=== PATIENT | male | born 1950 | race Caucasian/White ===

== ENCOUNTER 2022-08-02 21:38 | Emergency (ER) | payer MEDICARE, SELFPAY ==
[2022-08-02 21:56] VITALS: BP 134/72; PULSE 55; RESP 20; TEMP 36.8; O2SAT 94; BMI 24.9
--- NOTE | 2022-08-02 22:05 | DI.RAD.S_ITS ---
PROCEDURE: XR CHEST 1V INDICATIONS: chest pain TECHNIQUE: One view of the chest was acquired. COMPARISON: None. FINDINGS: Surgical changes and devices: None. Lungs and pleura: There is mild linear atelectasis or scarring in the left lung base. No acute consolidation. No pleural effusions or pneumothorax. Mediastinum: Mediastinal contours appear normal. Heart size is normal. Bones and chest wall: No suspicious bony lesions. Overlying soft tissues appear unremarkable. IMPRESSION: 1. No acute cardiopulmonary disease. Dictated by: Simone Denis M.D. on 08/02/2022 at 22:58 Approved by: Simone Denis M.D. on 08/02/2022 at 22:58
[2022-08-02 22:33] LABS: Add Manual Diff / Slide Review NO; Basophils Absolute Auto 0 /uL (0-100); Basophils Percent Auto 0.4 % (0-2); Eosinophils Absolute Auto 300 /uL (0-450); Eosinophils Percent Auto 4.1 % (2-4); Hematocrit 41.1 % (41-53); Hemoglobin 13.8 g/dL (13.5-17.5); Lymphocytes Absolute Auto 2200 /uL (1100-4500); Lymphocytes Percent Auto 35.6 % (25-40); Mean Corpuscular HGB Conc 33.6 % (30-36); Mean Corpuscular Hemoglobin 30.5 PG (26-34); Mean Corpuscular Volume 90.9 fL (80-100); Monocytes Absolute Auto 600 /uL (0-900); Monocytes Percent Auto 9.1 % (3-14); Neutrophils Absolute Auto 3100 /uL (1500-7000); Neutrophils Percent Auto 50.8 % (50-75); Platelet Count 219 X10^3/uL (150-400); Red Blood Cell Count 4.52 X10^6/uL (4.5-5.9); Red Cell Distribution Width 13.3 % (11.6-14.8); White Blood Cell Count 6.2 X10^3/uL (4.5-11.0)
[2022-08-02 22:40] LABS: INR 1.2 (0.9-1.3); Prothrombin Time 13.6 SECONDS (10.1-12.7)
[2022-08-02 22:43] LABS: PTT Partial Thromboplastin Tim 31 SECONDS (26-36)
[2022-08-02 22:46] LABS: Alanine Aminotransferase 38 IU/L (<50); Albumin 4.5 g/dL (3.5-5.0); Albumin Globulin Ratio 1.7 (1.0-2.8); Alkaline Phosphatase 95 U/L (38-126); Aspartate Aminotransferase 37 IU/L (17-59); BUN Creatinine Ratio 19.2 (6-22); Bilirubin Total 0.5 mg/dL (0.2-1.3); Blood Urea Nitrogen 20 mg/dL (9-20); Carbon Dioxide 28 mmol/L (22-32); Chloride 105 mmol/L (98-107); Creatine Kinase 198 U/L (55-170); Estimated Glomerular Filt Rate > 60 mL/min (>60); Globulin 2.6 g/dL (1.7-4.1); Glucose 131 mg/dL (80-110); HEMOLYSIS < 15 (0-50); Lipase 115 U/L (23-300); Magnesium 2.2 mg/dL (1.6-2.3); Potassium 3.7 mmol/L (3.4-5.1); Sodium 139 mmol/L (137-145); Total Protein 7.1 g/dL (6.3-8.2)
[2022-08-02 22:56] LABS: Troponin I < 0.012 ng/mL (0.01-0.034)
[2022-08-02 23:00] LABS: Creatine Kinase MB 1.96 ng/mL (<2.37)
[2022-08-03 01:00] VITALS: BP 138/67; PULSE 50; RESP 16; O2SAT 98
--- NOTE | 2022-08-03 02:37 | ED_ITS ---
HPI - Arrhythmia/Palpitations General Chief Complaint: Arrhythmia/Palpitations Stated Complaint: Low RBC Time Seen by Provider: 08/03/22 02:36 History of Present Illness HPI narrative: Patient is a 72-year-old male history of atrial fibrillation taking aspirin presents today at request walk-in clinic. He apparently went to the walk-in clinic for evaluated of floating and falling forward to the left. He is not actually fallen. He denies feeling dizzy or lightheaded no numbness tingling weakness no chest pain or palpitations or nausea or vomiting. He had his ear cleaned out at the walk-in clinic and he says that has. He apparently was sent to the ER for a blood transfusion. There was concern that he might be anemic. He is not had any vomiting of blood or loose stool warm black stool. He comes with an EKG from the clinic which showed a normal sinus rhythm rate of 50. It looks as though they had a POC hemoglobin from a fingerstick that was 5.7 which is why they thought he needed blood transfusion. Patient's vitals are normal. Related Data Allergies Allergy/AdvReac Type Severity Reaction Status Date / Time No Known Drug Allergies Allergy Verified 08/02/22 22:04 Review of Systems Review of Systems ROS Unobtainable: All systems reviewed & are unremarkable except as noted in HPI and below Patient History Social History Smoking Status: Never smoker Smoking Status: Never smoker alcohol intake frequency: 0-2 drinks per day Substance Use Type: does not use Exam Initial Vital Signs Initial Vital Signs: Vital Signs Temperature 98.3 F 08/02/22 21:56 Pulse Rate 55 L 08/02/22 21:56 Respiratory Rate 20 08/02/22 21:56 Blood Pressure 134/72 08/02/22 21:56 Pulse Oximetry 94 08/02/22 21:56 Oxygen Delivery Method Room Air 08/02/22 21:56 GENERAL: Alert pleasant well-appearing 72-year-old male HEENT: Head atraumatic,EOMI, pupils reactive, face symmetric, moist mucous membranes CARDIOVASCULAR: Regular rate and rhythm without murmurs, rubs or gallops. RESPIRATORY: Breath sounds equal bilaterally, no wheezes rales or rhonchi. ABDOMEN: Soft, nontender. Normoactive bowel sounds all 4 quadrants. No guarding or rebound. EXTREMITIES: Normal range of motion, no clubbing or edema. Neurovascularly intact NEUROLOGICAL: Alert and oriented x4.Normal gait and speech. [employer] strength equal bilaterally steady gait SKIN: Warm, dry, no laceration, no petechiae, no rashes or lesions. Course Orders Ordered: ED Orders 08/02/22 22:05 XR chest 1V Stat COVID19 -Nasal RAPID Stat EKG-12 Lead Stat 08/02/22 22:20 Complete Blood Count AUTO DIFF Stat Comprehensive Metabolic Panel Stat Lipase Stat Magnesium Stat PTT Partial Thromboplastin [place] Stat Prothrombin Time INR Stat Troponin & CK Cardiac Panel Stat Discontinued Medications Aspirin (Aspirin 81 Mg Chew Tab) 324 mg PO NOW ONE Stop: 08/02/22 22:06 Vital Signs Vital signs: Vital Signs - 8 hr 08/02/22 21:56 08/03/22 01:00 Temperature 98.3 F Pulse Rate 55 L 50 L Respiratory Rate 20 16 Blood Pressure 134/72 138/67 Pulse Oximetry 94 98 Oxygen Delivery Method Room Air Room Air MDM - Arrhythmia/Palpitations Lab Data 08/02/22 22:20 08/02/22 22:20 Labs: Lab Results 08/02/22 08/02/22 08/02/22 Range/Units 22:20 22:20 22:20 WBC 6.2 (4.5-11.0) X10^3/uL RBC 4.52 (4.5-5.9) X10^6/uL Hgb 13.8 (13.5-17.5) g/dL Hct 41.1 (41-53) % MCV 90.9 (80-100) fL MCH 30.5 (26-34) PG MCHC 33.6 (30-36) % RDW 13.3 (11.6-14.8) % Plt Count 219 (150-400) X10^3/uL Neut % (Auto) 50.8 (50-75) % Lymph % (Auto) 35.6 (25-40) % [place] % (Auto) 9.1 (3-14) % Eos % (Auto) 4.1 H (2-4) % Baso % (Auto) 0.4 (0-2) % Neut # (Auto) 3100 (0021-1334) /uL Lymph # (Auto) 2200 (6885-9885) /uL [place] # (Auto) 600 (0-900) /uL Eos # (Auto) 300 (0-450) /uL Baso # (Auto) 0 (0-100) /uL PT 13.6 H (10.1-12.7) SECONDS INR 1.2 (0.9-1.3) APTT 31 (26-36) SECONDS Sodium 139 (137-145) mmol/L Potassium 3.7 (3.4-5.1) mmol/L Chloride 105 (98-107) mmol/L Carbon Dioxide 28 (22-32) mmol/L BUN 20 (9-20) mg/dL Creatinine 1.04 (0.66-1.25) mg/dL Estimated GFR > 60 (>60) mL/min BUN/Creatinine Ratio 19.2 (6-22) Glucose 131 H (80-110) mg/dL Calcium 9.0 (8.4-10.2) mg/dL Magnesium 2.2 (1.6-2.3) mg/dL Total Bilirubin 0.5 (0.2-1.3) mg/dL AST 37 (17-59) IU/L ALT 38 (<50) IU/L Alkaline Phosphatase 95 (38-126) U/L Total Creatine Kinase 198 H (55-170) U/L CK-MB (CK-2) 1.96 (<2.37) ng/mL CK-MB (CK-2) Rel Index 1.0 L (1.5-5.0) % Troponin I < 0.012 (0.01-0.034) ng/mL Total Protein 7.1 (6.3-8.2) g/dL Albumin 4.5 (3.5-5.0) g/dL Globulin 2.6 (1.7-4.1) g/dL Albumin/Globulin Ratio 1.7 (1.0-2.8) Lipase 115 (23-300) U/L Imaging Data Chest x-ray: Radiologist's Impresson: PROCEDURE:? XR CHEST 1V ? INDICATIONS:? chest pain ? TECHNIQUE:? One view of the chest was acquired.? ? COMPARISON:? None. ? FINDINGS:? ? Surgical changes and devices:? None.? ? Lungs and pleura:? There is mild linear atelectasis or scarring in the left lung base.? No acute consolidation.? No pleural effusions or pneumothorax.? ? Mediastinum:? Mediastinal contours appear normal.? Heart size is normal.? ? Bones and chest wall:? No suspicious bony lesions.? Overlying soft tissues appear unremarkable.? ? IMPRESSION:? ? 1.? No acute cardiopulmonary disease. ? ? ? Dictated by: Simone Denis M.D. on 08/02/2022 at 22:58 ? ? ECG Data Interpretation: Sinus rhythm rate 62 OK 152 QRS [address] changes or T-wave inversions Q- wave noted in V3 similar to walk-in MDM Narrative Medical decision making narrative: Patient presents today her POC hemoglobin of 5.7 and walk-in clinic concern that this is causing his floating sensation. Patient has no focal deficits he is in sinus rhythm and blood work in the emergency department is normal. There is no evidence of anemia vitals are stable there is no hypotension he has not had any black or bloody stool. Concern for questionable posterior stroke versus vertigo for dizzy/floating sensation however patient is ambulatory in the ED without any trouble. At this point he is had a long day and they are ready home. No leukocytosis no anemia, no electrolyte abnormality glucose 131- troponin. The patient may have had a slight episode of vertigo earlier but it seems to have improved. Not convinced that clearing out the cerumen helped but he seems better. There is certainly no evidence of anemia or blood loss. Discharge Plan Departure Patient Disposition: Home Clinical Impression: Feared complaint without diagnosis Instructions: DI for Atrial Fibrillation Activity Restrictions/Additional Instructions: *You have been diagnosed with your blood work today does not show why you felt way you did. *What to do: No evidence of anemia certainly no need for blood transfusion electrolytes are within limits. You were in sinus rhythm *Continue to take medications as directed *Follow up with your primary care provider in 2-3 days or call [phone] *Return to ER if you should have dizziness vomiting chest pain palpitations numbness tingling, weakness or any new, worsening or concerning symptoms Referrals: Janina David MD [Primary Care Provider] - Stand Alone Forms: Patient Portal/API
[2022-08-03 03:00] VITALS: BP 182/84; PULSE 55; RESP 20; O2SAT 95
== END 2022-08-03 03:11 | disposition home or self-care (01) ==
PROVIDERS: Emergency Medicine; Emergency Provider Emergency Medicine; PCP Family Medicine
DX: R07.9 Chest pain, unspecified (principal); R42 Dizziness and giddiness
CPT/HCPCS: 36415; 71045; 80053; 82550; 82553; 83690; 83735; 84484; 85025; 85610; 85730; 93005; 93010; 99283; 99284